=== PATIENT | male | born 1960 | race Caucasian/White ===

== ENCOUNTER 2017-12-31 16:33 | Inpatient (IN) | payer MEDICARE, OTHER ==
[~2017-12-31] VITALS: Ht 177.8 cm; Wt 70.2 kg
[~2017-12-31 16:33] MED LIST: CANE-100; CLON-527 PO; COR3.125T PO; FOLI-43 PO; LACT10SO PO; PRO30XLT PO; THI100T PO; THIAMINE
[2017-12-31] MEDS ORDERED: normal saline 1000ml 1,000 ML IV ONE (17:15)
[2017-12-31 17:29] LABS: BASOPHILS % (AUTO) 0.3 % (0-1); EOSINOPHILS # (AUTO) 0.3 X10'3 (0-0.9); EOSINOPHILS % (AUTO) 3.4 % (0-6); HEMATOCRIT 24.6 % (42.0-52.0); HEMOGLOBIN 8.2 g/dl (14.0-17.9); LYMPHOCYTES # (AUTO) 1.5 X10'3 (1.1-4.8); LYMPHOCYTES % (AUTO) 17.5 % (21-51); MEAN CORPUSCULAR HEMOGLOBIN 27.4 PG (27.0-31.0); MEAN CORPUSCULAR HGB CONC 33.2 % (33.0-36.5); MEAN CORPUSCULAR VOLUME 82.4 FL (78-98); MEAN PLATELET VOLUME 8.1 FL (7.4-10.4); MONOCYTES # (AUTO) 0.7 X10'3 (0-0.9); MONOCYTES % (AUTO) 8.1 % (2-12); NEUTROPHILS # (AUTO) 6.2 X10'3 (1.8-7.7); NEUTROPHILS % (AUTO) 70.7 % (42-75); PLATELET COUNT 128 X10'3 (140-440); RED BLOOD COUNT 2.99 X10'6 (4.70-6.10); RED CELL DISTRIBUTION WIDTH 18.9 % (11.5-14.5); WHITE BLOOD COUNT 8.7 X10'3 (4.5-11.0)
[2017-12-31 17:40] LABS: INR 1.4 INR; PARTIAL THROMBOPLASTIN TIME 25 SECONDS (22-32); PROTHROMBIN TIME 14.1 SECONDS (9.0-12.0)
[2017-12-31 17:44] LABS: ALANINE AMINOTRANSFERASE 143 U/L (12-78); ALBUMIN 2.4 G/DL (3.4-5.0); ALBUMIN/GLOBULIN RATIO 0.6 (1.1-1.5); ALKALINE PHOSPHATASE 111 IU/L (46-116); ANION GAP 6 (8-16); ASPARTATE AMINO TRANSFERASE 197 U/L (10-37); BILIRUBIN,TOTAL 0.9 MG/DL (0.1-1.0); BLOOD UREA NITROGEN 54 MG/DL (7-18); BUN/CREATININE RATIO 46.6 (5.4-32.0); CALCIUM 8.6 MG/DL (8.5-10.1); CHLORIDE 106 MMOL/L (99-107); CREATININE 1.16 MG/DL (0.60-1.10); ETHANOL < 0.010 GM/DL (0.0-0.010); GLUCOSE 124 MG/DL (70-104); POTASSIUM 4.5 MMOL/L (3.5-5.1); SODIUM 141 MMOL/L (135-145); TOTAL CARBON DIOXIDE 28.9 MMOL/L (24-32); TOTAL PROTEIN 6.4 G/DL (6.4-8.2); eGFR 65 ML/MIN
[2017-12-31] MEDS ORDERED: normal saline 1000ML IV soln IV ONE (18:40)
[2017-12-31 18:45] LABS: CLARITY,URINE CLEAR (Clear); COLOR,URINE YELLOW (Yellow); GLUCOSE, URINE NEGATIVE (Neg); KETONES,URINE NEGATIVE (Neg); LEUKOCYTE ESTERASE ,URINE NEGATIVE (Neg); NITRITES, URINE NEGATIVE (Neg); OCCULT BLOOD,URINE NEGATIVE (Neg); PROTEIN,URINE NEGATIVE (Neg); UA COLLECTION TYPE CLN CATCH MIDSTREAM
[2017-12-31 18:52] LABS: URINE AMPHETAMINE SCREEN POSITIVE (Neg); URINE BARBITUATE SCREEN NEGATIVE (Neg); URINE BENZODIAZEPINES SCREEN NEGATIVE (Neg); URINE CANNABINOID SCREEN NEGATIVE (Neg); URINE COCAINE SCREEN NEGATIVE (Neg); URINE METHADONE SCREEN NEGATIVE (Neg); URINE OPIATE SCREEN NEGATIVE (Neg); URINE PHENCYCLIDINE SCREEN NEGATIVE (Neg)
[2017-12-31] MEDS ORDERED: ketorolac tromethamine 15mg/ml inj. IV ONE (19:10)
[2017-12-31] MEDS ORDERED: ondansetron/PF 4mg/2ml inj IV ONE (19:10)
[2017-12-31 20:46] LABS: HEMOGLOBIN 7.1 g/dl (14.0-17.9); MEAN CORPUSCULAR HEMOGLOBIN 27.4 PG (27.0-31.0); MEAN CORPUSCULAR HGB CONC 33.3 % (33.0-36.5); MEAN CORPUSCULAR VOLUME 82.2 FL (78-98); MEAN PLATELET VOLUME 8.2 FL (7.4-10.4); PLATELET COUNT 95 X10'3 (140-440); RED BLOOD COUNT 2.61 X10'6 (4.70-6.10); RED CELL DISTRIBUTION WIDTH 19.2 % (11.5-14.5); WHITE BLOOD COUNT 7.3 X10'3 (4.5-11.0)
[2017-12-31 20:53] LABS: HEMATOCRIT 21.4 % (42.0-52.0)
[2017-12-31 22:00] LABS: LIPASE 129 U/L (73-393)
[2017-12-31 23:26] VITALS: BP 127/71
[2017-12-31] MEDS ORDERED: octreotide inj. 1,250 MCG in normal saline 250ml IV soln 243.75 ML IV SCH (23:40)
[2017-12-31 23:49] VITALS: BP 105/75
[2017-12-31 23:56] VITALS: BP 119/69
[2018-01-01] VITALS (28 sets, daily range): BP systolic 92–149; BP diastolic 47–80
[2018-01-01] MEDS: normal saline 1000ml 1,000 ML IV SCH ×2 (00:14→14:12)
[2018-01-01] MEDS ORDERED: magnesium hydroxide 30ml (MOM) UD suspension PO PRN (00:15)
[2018-01-01] MEDS ORDERED: K, MAG and/or Phos replacement - Verify level? MC PRN (00:15)
[2018-01-01] MEDS ORDERED: potassium Cl 40MEQ/NS 500ml 500 ML IV PRN (00:15)
[2018-01-01] MEDS ORDERED: acetaminophen 650mg rectal suppository RC PRN (00:15)
[2018-01-01] MEDS ORDERED: ondansetron/PF 4mg/2ml inj IV PRN (00:15)
[2018-01-01] MEDS ORDERED: ipratropium/albuterol 3ml nebule NEB PRN (00:35)
[2018-01-01] MEDS ORDERED: octreotide 200mcg/ml 5ml vial ONE ×2 (01:54→01:55)
[2018-01-01] MEDS ORDERED: normal saline 250ml IV soln 250 ML ONE (01:55)
[2018-01-01] MEDS ORDERED: pantoprazole 40 MG vial IV ONE (02:00)
[2018-01-01 02:09] LABS: HEMATOCRIT 25.2 % (42.0-52.0); HEMOGLOBIN 8.6 g/dl (14.0-17.9); MEAN CORPUSCULAR HEMOGLOBIN 28.1 PG (27.0-31.0); MEAN CORPUSCULAR VOLUME 82.6 FL (78-98); MEAN PLATELET VOLUME 8.5 FL (7.4-10.4); PLATELET COUNT 99 X10'3 (140-440); RED BLOOD COUNT 3.06 X10'6 (4.70-6.10); RED CELL DISTRIBUTION WIDTH 18.3 % (11.5-14.5); WHITE BLOOD COUNT 8.8 X10'3 (4.5-11.0)
[2018-01-01] MEDS: octreotide inj. 1,250 MCG in normal saline 250ml IV soln 243.75 ML IV SCH (02:41)
[2018-01-01] MEDS: pantoprazole 40MG/NS 100ML BAG 100 ML IV SCH ×5 (03:00→21:00)
[2018-01-01 07:01] LABS: BASOPHILS % (AUTO) 0.4 % (0-1); EOSINOPHILS # (AUTO) 0.4 X10'3 (0-0.9); HEMATOCRIT 26.6 % (42.0-52.0); LYMPHOCYTES # (AUTO) 1.4 X10'3 (1.1-4.8); LYMPHOCYTES % (AUTO) 14.6 % (21-51); MEAN CORPUSCULAR HEMOGLOBIN 28.1 PG (27.0-31.0); MEAN CORPUSCULAR HGB CONC 33.9 % (33.0-36.5); MEAN PLATELET VOLUME 8.6 FL (7.4-10.4); MONOCYTES # (AUTO) 0.7 X10'3 (0-0.9); MONOCYTES % (AUTO) 6.8 % (2-12); NEUTROPHILS # (AUTO) 7.3 X10'3 (1.8-7.7); NEUTROPHILS % (AUTO) 74.2 % (42-75); PLATELET COUNT 114 X10'3 (140-440); RED BLOOD COUNT 3.21 X10'6 (4.70-6.10); RED CELL DISTRIBUTION WIDTH 18.5 % (11.5-14.5); WHITE BLOOD COUNT 9.8 X10'3 (4.5-11.0)
[2018-01-01 07:12] LABS: HIV ANTIBODY 1&2 RAPID NON-REACTIVE (Neg)
[2018-01-01 07:13] LABS: INR 1.3 INR; PARTIAL THROMBOPLASTIN TIME 28 SECONDS (22-32)
[2018-01-01 07:27] LABS: ALANINE AMINOTRANSFERASE 231 U/L (12-78); ALBUMIN 2.3 G/DL (3.4-5.0); ALBUMIN/GLOBULIN RATIO 0.6 (1.1-1.5); ALKALINE PHOSPHATASE 101 IU/L (46-116); ANION GAP 10 (8-16); ASPARTATE AMINO TRANSFERASE 332 U/L (10-37); BILIRUBIN,TOTAL 1.8 MG/DL (0.1-1.0); BLOOD UREA NITROGEN 61 MG/DL (7-18); CHLORIDE 109 MMOL/L (99-107); CREATININE 1.09 MG/DL (0.60-1.10); GLUCOSE 118 MG/DL (70-104); MAGNESIUM 1.9 MG/DL (1.5-2.4); PHOSPHORUS 3.5 MG/DL (2.3-4.5); POTASSIUM 4.7 MMOL/L (3.5-5.1); SODIUM 143 MMOL/L (135-145); TOTAL CARBON DIOXIDE 24.2 MMOL/L (24-32); eGFR 70 ML/MIN
[2018-01-01] MEDS ORDERED: NO HOME MEDS (07:56)
[2018-01-01] MEDS ORDERED: fentaNYL/PF 50MCG/1 ML 2ML syringe ONE (09:00)
[2018-01-01] MEDS ORDERED: MIDAZolam 5mg/5ml vial ONE (09:01)
[2018-01-01] MEDS ORDERED: LIDOcaine Viscous 15ml cup ONE (09:01)
[2018-01-01 09:19] LABS: HEMATOCRIT 25.9 % (42.0-52.0); HEMOGLOBIN 8.6 g/dl (14.0-17.9); MEAN CORPUSCULAR HEMOGLOBIN 27.4 PG (27.0-31.0); MEAN CORPUSCULAR HGB CONC 33.2 % (33.0-36.5); MEAN CORPUSCULAR VOLUME 82.5 FL (78-98); MEAN PLATELET VOLUME 8.8 FL (7.4-10.4); PLATELET COUNT 112 X10'3 (140-440); RED BLOOD COUNT 3.14 X10'6 (4.70-6.10); RED CELL DISTRIBUTION WIDTH 18.5 % (11.5-14.5); WHITE BLOOD COUNT 9.6 X10'3 (4.5-11.0)
[2018-01-01 13:01] LABS: HEMATOCRIT 26.3 % (42.0-52.0); HEMOGLOBIN 8.8 g/dl (14.0-17.9); MEAN CORPUSCULAR HEMOGLOBIN 27.8 PG (27.0-31.0); MEAN CORPUSCULAR HGB CONC 33.2 % (33.0-36.5); MEAN CORPUSCULAR VOLUME 83.7 FL (78-98); MEAN PLATELET VOLUME 8.8 FL (7.4-10.4); PLATELET COUNT 96 X10'3 (140-440); RED BLOOD COUNT 3.15 X10'6 (4.70-6.10); RED CELL DISTRIBUTION WIDTH 18.7 % (11.5-14.5); WHITE BLOOD COUNT 8.5 X10'3 (4.5-11.0)
[2018-01-01 17:03] LABS: HEMATOCRIT 26.3 % (42.0-52.0); HEMOGLOBIN 8.8 g/dl (14.0-17.9); MEAN CORPUSCULAR HEMOGLOBIN 27.9 PG (27.0-31.0); MEAN CORPUSCULAR HGB CONC 33.4 % (33.0-36.5); MEAN CORPUSCULAR VOLUME 83.4 FL (78-98); MEAN PLATELET VOLUME 8.7 FL (7.4-10.4); PLATELET COUNT 102 X10'3 (140-440); RED BLOOD COUNT 3.15 X10'6 (4.70-6.10); RED CELL DISTRIBUTION WIDTH 18.4 % (11.5-14.5); WHITE BLOOD COUNT 9.4 X10'3 (4.5-11.0)
[2018-01-01] MEDS: LORazepam 2 mg/ml vial IV PRN (19:07)
[2018-01-01 21:11] LABS: HEMATOCRIT 25.4 % (42.0-52.0); HEMOGLOBIN 8.4 g/dl (14.0-17.9); MEAN CORPUSCULAR HEMOGLOBIN 27.7 PG (27.0-31.0); MEAN CORPUSCULAR HGB CONC 33.1 % (33.0-36.5); MEAN CORPUSCULAR VOLUME 83.8 FL (78-98); MEAN PLATELET VOLUME 8.6 FL (7.4-10.4); PLATELET COUNT 105 X10'3 (140-440); RED BLOOD COUNT 3.04 X10'6 (4.70-6.10); RED CELL DISTRIBUTION WIDTH 18.6 % (11.5-14.5); WHITE BLOOD COUNT 8.4 X10'3 (4.5-11.0)
[2018-01-02] VITALS (24 sets, daily range): BP systolic 119–188; BP diastolic 57–95
[2018-01-02] MEDS: pantoprazole 40MG/NS 100ML BAG 100 ML IV SCH ×5 (00:40→21:00)
[2018-01-02] MEDS: octreotide inj. 1,250 MCG in normal saline 250ml IV soln 243.75 ML IV SCH (02:59)
[2018-01-02] MEDS: normal saline 1000ml 1,000 ML IV SCH ×2 (03:00→17:07)
[2018-01-02 05:36] LABS: HEMATOCRIT 26.3 % (42.0-52.0); HEMOGLOBIN 8.6 g/dl (14.0-17.9); MEAN CORPUSCULAR HEMOGLOBIN 27.7 PG (27.0-31.0); MEAN CORPUSCULAR HGB CONC 32.5 % (33.0-36.5); MEAN CORPUSCULAR VOLUME 85.3 FL (78-98); MEAN PLATELET VOLUME 8.8 FL (7.4-10.4); PLATELET COUNT 107 X10'3 (140-440); RED BLOOD COUNT 3.08 X10'6 (4.70-6.10); RED CELL DISTRIBUTION WIDTH 18.5 % (11.5-14.5); WHITE BLOOD COUNT 10.2 X10'3 (4.5-11.0)
[2018-01-02 05:38] LABS: BASOPHILS % (AUTO) 0.2 % (0-1); EOSINOPHILS # (AUTO) 0.4 X10'3 (0-0.9); EOSINOPHILS % (AUTO) 3.8 % (0-6); HEMATOCRIT 25.9 % (42.0-52.0); HEMOGLOBIN 8.6 g/dl (14.0-17.9); LYMPHOCYTES # (AUTO) 1.1 X10'3 (1.1-4.8); LYMPHOCYTES % (AUTO) 10.3 % (21-51); MEAN CORPUSCULAR HEMOGLOBIN 27.9 PG (27.0-31.0); MEAN CORPUSCULAR HGB CONC 33.2 % (33.0-36.5); MEAN PLATELET VOLUME 8.5 FL (7.4-10.4); MONOCYTES # (AUTO) 0.5 X10'3 (0-0.9); MONOCYTES % (AUTO) 4.5 % (2-12); NEUTROPHILS # (AUTO) 8.5 X10'3 (1.8-7.7); NEUTROPHILS % (AUTO) 81.2 % (42-75); PLATELET COUNT 106 X10'3 (140-440); RED BLOOD COUNT 3.09 X10'6 (4.70-6.10); RED CELL DISTRIBUTION WIDTH 18.3 % (11.5-14.5); WHITE BLOOD COUNT 10.4 X10'3 (4.5-11.0)
[2018-01-02 05:47] LABS: INR 1.2 INR; PARTIAL THROMBOPLASTIN TIME 27 SECONDS (22-32); PROTHROMBIN TIME 12.8 SECONDS (9.0-12.0)
[2018-01-02 06:18] LABS: ALANINE AMINOTRANSFERASE 264 U/L (12-78); ALBUMIN 2.2 G/DL (3.4-5.0); ALBUMIN/GLOBULIN RATIO 0.6 (1.1-1.5); ALKALINE PHOSPHATASE 98 IU/L (46-116); ANION GAP 12 (8-16); ASPARTATE AMINO TRANSFERASE 275 U/L (10-37); BILIRUBIN,TOTAL 1.2 MG/DL (0.1-1.0); BLOOD UREA NITROGEN 42 MG/DL (7-18); BUN/CREATININE RATIO 38.5 (5.4-32.0); CALCIUM 7.9 MG/DL (8.5-10.1); CHLORIDE 114 MMOL/L (99-107); CREATININE 1.09 MG/DL (0.60-1.10); GLUCOSE 128 MG/DL (70-104); PHOSPHORUS 2.7 MG/DL (2.3-4.5); SODIUM 149 MMOL/L (135-145); TOTAL PROTEIN 5.9 G/DL (6.4-8.2); eGFR 70 ML/MIN
[2018-01-02] MEDS: chlordiazePOXIDE 25mg capsule PO PRN ×2 (10:42→21:32)
[2018-01-02 13:09] LABS: HBSAG SCREEN Negative (Negative); HEPATITIS C ANTIBODY >11.0 s/co ratio (0.0-0.9)
[2018-01-02] MEDS: LORazepam 2 mg/ml vial IV PRN (17:29)
[2018-01-02] MEDS: acetaminophen 325mg tablet PO PRN (21:33)
[2018-01-03] VITALS (24 sets, daily range): BP systolic 121–196; BP diastolic 68–94
[2018-01-03] MEDS: pantoprazole 40MG/NS 100ML BAG 100 ML IV SCH ×3 (01:00→10:29)
[2018-01-03] MEDS: octreotide inj. 1,250 MCG in normal saline 250ml IV soln 243.75 ML IV SCH (04:28)
[2018-01-03] MEDS: normal saline 1000ml 1,000 ML IV SCH (04:28)
[2018-01-03 05:55] LABS: BASOPHILS % (AUTO) 0.4 % (0-1); EOSINOPHILS # (AUTO) 0.4 X10'3 (0-0.9); EOSINOPHILS % (AUTO) 5.5 % (0-6); HEMATOCRIT 22.3 % (42.0-52.0); HEMOGLOBIN 7.5 g/dl (14.0-17.9); LYMPHOCYTES # (AUTO) 1.3 X10'3 (1.1-4.8); LYMPHOCYTES % (AUTO) 16.3 % (21-51); MEAN CORPUSCULAR HEMOGLOBIN 28.6 PG (27.0-31.0); MEAN CORPUSCULAR HGB CONC 33.7 % (33.0-36.5); MEAN CORPUSCULAR VOLUME 85.1 FL (78-98); MEAN PLATELET VOLUME 8.7 FL (7.4-10.4); MONOCYTES # (AUTO) 0.4 X10'3 (0-0.9); MONOCYTES % (AUTO) 5.5 % (2-12); NEUTROPHILS # (AUTO) 5.8 X10'3 (1.8-7.7); NEUTROPHILS % (AUTO) 72.3 % (42-75); PLATELET COUNT 83 X10'3 (140-440); RED BLOOD COUNT 2.62 X10'6 (4.70-6.10); WHITE BLOOD COUNT 8.1 X10'3 (4.5-11.0)
[2018-01-03 05:56] LABS: INR 1.2 INR; PROTHROMBIN TIME 12.6 SECONDS (9.0-12.0)
[2018-01-03 06:04] LABS: ALANINE AMINOTRANSFERASE 213 U/L (12-78); ALBUMIN 2.1 G/DL (3.4-5.0); ALBUMIN/GLOBULIN RATIO 0.6 (1.1-1.5); ALKALINE PHOSPHATASE 93 IU/L (46-116); ANION GAP 4 (8-16); ASPARTATE AMINO TRANSFERASE 147 U/L (10-37); BILIRUBIN,TOTAL 1.2 MG/DL (0.1-1.0); CALCIUM 8.1 MG/DL (8.5-10.1); CHLORIDE 113 MMOL/L (99-107); CREATININE 0.95 MG/DL (0.60-1.10); GLUCOSE 118 MG/DL (70-104); PHOSPHORUS 2.6 MG/DL (2.3-4.5); POTASSIUM 3.4 MMOL/L (3.5-5.1); SODIUM 141 MMOL/L (135-145); TOTAL CARBON DIOXIDE 24.1 MMOL/L (24-32); TOTAL PROTEIN 5.9 G/DL (6.4-8.2); eGFR 82 ML/MIN
[2018-01-03 06:05] LABS: BLOOD UREA NITROGEN 27 MG/DL (7-18); BUN/CREATININE RATIO 28.4 (5.4-32.0)
[2018-01-03] MEDS: potassium Cl 40MEQ/NS 500ml 500 ML IV PRN (09:51)
[2018-01-03] MEDS: LORazepam 2 mg/ml vial IV PRN ×4 (10:19→21:48)
[2018-01-03] MEDS: pantoprazole 40 MG vial IV SCH ×2 (11:55→21:55)
[2018-01-03] MEDS: lactulose 20gm/30ml cup PO SCH ×3 (12:00→20:00)
[2018-01-03] MEDS: thiamine inj. 100 MG, MVI, adult No.4 with vit. K 10 ML in dextrose 5% water 500ml 489 ML IV SCH ×3 (16:04)
[2018-01-03] MEDS ORDERED: acetaminophen 1,000mg/100ml IV 100 ML IV ONE (19:15)
[2018-01-04] VITALS (24 sets, daily range): BP systolic 109–179; BP diastolic 59–91
[2018-01-04] MEDS: lactulose 20gm/30ml cup PO SCH ×4 (01:59→20:00)
[2018-01-04] MEDS: normal saline 1000ml 1,000 ML IV SCH ×3 (02:21→21:34)
[2018-01-04 04:55] LABS: BASOPHILS % (AUTO) 0.3 % (0-1); EOSINOPHILS # (AUTO) 0.1 X10'3 (0-0.9); EOSINOPHILS % (AUTO) 1.3 % (0-6); HEMATOCRIT 24.4 % (42.0-52.0); HEMOGLOBIN 8.1 g/dl (14.0-17.9); LYMPHOCYTES # (AUTO) 0.6 X10'3 (1.1-4.8); LYMPHOCYTES % (AUTO) 7.3 % (21-51); MEAN CORPUSCULAR HEMOGLOBIN 28.4 PG (27.0-31.0); MEAN CORPUSCULAR HGB CONC 33.3 % (33.0-36.5); MEAN CORPUSCULAR VOLUME 85.4 FL (78-98); MEAN PLATELET VOLUME 8.2 FL (7.4-10.4); MONOCYTES # (AUTO) 0.4 X10'3 (0-0.9); MONOCYTES % (AUTO) 5.9 % (2-12); NEUTROPHILS # (AUTO) 6.5 X10'3 (1.8-7.7); NEUTROPHILS % (AUTO) 85.2 % (42-75); PLATELET COUNT 86 X10'3 (140-440); RED BLOOD COUNT 2.86 X10'6 (4.70-6.10); RED CELL DISTRIBUTION WIDTH 19.5 % (11.5-14.5); WHITE BLOOD COUNT 7.6 X10'3 (4.5-11.0)
[2018-01-04 05:01] LABS: INR 1.2 INR; PROTHROMBIN TIME 12.7 SECONDS (9.0-12.0)
[2018-01-04 05:08] LABS: ALANINE AMINOTRANSFERASE 162 U/L (12-78); ALBUMIN 2.2 G/DL (3.4-5.0); ALBUMIN/GLOBULIN RATIO 0.5 (1.1-1.5); ALKALINE PHOSPHATASE 95 IU/L (46-116); ANION GAP 8 (8-16); ASPARTATE AMINO TRANSFERASE 85 U/L (10-37); BILIRUBIN,TOTAL 1.8 MG/DL (0.1-1.0); BLOOD UREA NITROGEN 17 MG/DL (7-18); BUN/CREATININE RATIO 14.9 (5.4-32.0); CALCIUM 7.6 MG/DL (8.5-10.1); CHLORIDE 109 MMOL/L (99-107); CREATININE 1.14 MG/DL (0.60-1.10); GLUCOSE 119 MG/DL (70-104); MAGNESIUM 1.6 MG/DL (1.5-2.4); PHOSPHORUS 2.7 MG/DL (2.3-4.5); POTASSIUM 3.5 MMOL/L (3.5-5.1); SODIUM 142 MMOL/L (135-145); TOTAL CARBON DIOXIDE 24.8 MMOL/L (24-32); TOTAL PROTEIN 6.4 G/DL (6.4-8.2); eGFR 66 ML/MIN
[2018-01-04] MEDS: LORazepam 2 mg/ml vial IV PRN (06:36)
[2018-01-04] MEDS: pantoprazole 40 MG vial IV SCH ×2 (07:59→20:15)
[2018-01-04] MEDS: thiamine inj. 100 MG, MVI, adult No.4 with vit. K 10 ML in dextrose 5% water 500ml 489 ML IV SCH ×3 (07:59)
[2018-01-04] MEDS ORDERED: dextrose 50%-water 50ml dispensing syringe IV ONE (20:06)
[2018-01-04] MEDS ORDERED: glucagon, human recombinant 1mg kit SUBCUT PRN (20:10)
[2018-01-04] MEDS ORDERED: dextrose 50%-water 50ml dispensing syringe IV PRN ×2 (20:10)
[2018-01-04] MEDS ORDERED: dextrose ORAL solution 15 GM/59 ML bottle PO PRN (20:10)
[2018-01-05] VITALS (10 sets, daily range): BP systolic 103–189; BP diastolic 63–106
[2018-01-05] MEDS: lactulose 20gm/30ml cup PO SCH ×4 (02:00→19:49)
[2018-01-05 04:59] LABS: BASOPHILS % (AUTO) 0.4 % (0-1); EOSINOPHILS # (AUTO) 0.4 X10'3 (0-0.9); EOSINOPHILS % (AUTO) 7.6 % (0-6); HEMATOCRIT 22.4 % (42.0-52.0); HEMOGLOBIN 7.6 g/dl (14.0-17.9); LYMPHOCYTES # (AUTO) 0.9 X10'3 (1.1-4.8); LYMPHOCYTES % (AUTO) 18.3 % (21-51); MEAN CORPUSCULAR HEMOGLOBIN 28.4 PG (27.0-31.0); MEAN CORPUSCULAR HGB CONC 33.7 % (33.0-36.5); MEAN CORPUSCULAR VOLUME 84.2 FL (78-98); MEAN PLATELET VOLUME 8.8 FL (7.4-10.4); MONOCYTES # (AUTO) 0.5 X10'3 (0-0.9); MONOCYTES % (AUTO) 9.3 % (2-12); NEUTROPHILS # (AUTO) 3.2 X10'3 (1.8-7.7); NEUTROPHILS % (AUTO) 64.4 % (42-75); PLATELET COUNT 70 X10'3 (140-440); RED BLOOD COUNT 2.66 X10'6 (4.70-6.10); RED CELL DISTRIBUTION WIDTH 19.7 % (11.5-14.5)
[2018-01-05] MEDS: normal saline 1000ml 1,000 ML IV SCH (05:01)
[2018-01-05 05:07] LABS: INR 1.2 INR; PROTHROMBIN TIME 12.8 SECONDS (9.0-12.0)
[2018-01-05 05:42] LABS: ALANINE AMINOTRANSFERASE 119 U/L (12-78); ALBUMIN 1.9 G/DL (3.4-5.0); ALBUMIN/GLOBULIN RATIO 0.5 (1.1-1.5); ALKALINE PHOSPHATASE 83 IU/L (46-116); ANION GAP 10 (8-16); ASPARTATE AMINO TRANSFERASE 66 U/L (10-37); BILIRUBIN,TOTAL 1.4 MG/DL (0.1-1.0); BLOOD UREA NITROGEN 12 MG/DL (7-18); BUN/CREATININE RATIO 13.3 (5.4-32.0); CALCIUM 7.6 MG/DL (8.5-10.1); CHLORIDE 106 MMOL/L (99-107); GLUCOSE 110 MG/DL (70-104); MAGNESIUM 1.6 MG/DL (1.5-2.4); PHOSPHORUS 2.4 MG/DL (2.3-4.5); POTASSIUM 3.5 MMOL/L (3.5-5.1); SODIUM 138 MMOL/L (135-145); TOTAL CARBON DIOXIDE 22.3 MMOL/L (24-32); TOTAL PROTEIN 5.8 G/DL (6.4-8.2); eGFR 87 ML/MIN
[2018-01-05] MEDS: thiamine inj. 100 MG, MVI, adult No.4 with vit. K 10 ML in dextrose 5% water 500ml 489 ML IV SCH ×3 (08:34)
[2018-01-05] MEDS: pantoprazole 40 MG vial IV SCH ×2 (08:34→19:50)
[2018-01-05] MEDS: acetaminophen 325mg tablet PO PRN ×2 (15:13→19:50)
[2018-01-05] MEDS ORDERED: carVEDilol 3.125mg tablet PO ONE (16:05)
[2018-01-05] MEDS ORDERED: NIFEdipine XL 30mg tablet PO ONE (16:05)
[2018-01-05 16:27] LABS: CLARITY,URINE CLOUDY (Clear); COLOR,URINE YELLOW (Yellow); GLUCOSE, URINE NEGATIVE (Neg); KETONES,URINE NEGATIVE (Neg); LEUKOCYTE ESTERASE ,URINE SMALL (Neg); NITRITES, URINE POSITIVE (Neg); OCCULT BLOOD,URINE LARGE (Neg); PH,URINE 5.5 (4.8-8.0); PROTEIN,URINE 30 mg/dl (Neg)
[2018-01-05 17:04] LABS: UA COLLECTION TYPE NON-SPECIFIED
[2018-01-05 17:05] LABS: WBC,URINE 50-100 /HPF (0-4)
[2018-01-05 17:06] LABS: BACTERIA,URINE 3+ /HPF (Neg); MUCUS STRANDS MODERATE /LPF (Neg); SQUAMOUS EPITHELIAL CELL,UR FEW /LPF (FEW); WBC CLUMPS,URINE MANY /HPF (NEGATIVE)
[2018-01-05] MEDS: carVEDilol 3.125mg tablet PO SCH (19:50)
[2018-01-05] MEDS ORDERED: carVEDilol 3.125mg tablet PO SCH (20:00)
[2018-01-06] MEDS: normal saline 1000ml 1,000 ML IV SCH ×2 (00:03→12:43)
[2018-01-06 02:00] VITALS: BP 122/60
[2018-01-06] MEDS: lactulose 20gm/30ml cup PO SCH ×4 (02:02→20:09)
[2018-01-06 05:57] LABS: BASOPHILS % (AUTO) 0.2 % (0-1); EOSINOPHILS % (AUTO) 0 % (0-6); HEMATOCRIT 22.2 % (42.0-52.0); HEMOGLOBIN 7.5 g/dl (14.0-17.9); LYMPHOCYTES # (AUTO) 0.9 X10'3 (1.1-4.8); LYMPHOCYTES % (AUTO) 6.1 % (21-51); MEAN CORPUSCULAR HEMOGLOBIN 28.5 PG (27.0-31.0); MEAN CORPUSCULAR HGB CONC 33.9 % (33.0-36.5); MEAN CORPUSCULAR VOLUME 84.1 FL (78-98); MEAN PLATELET VOLUME 8.8 FL (7.4-10.4); MONOCYTES # (AUTO) 0.8 X10'3 (0-0.9); MONOCYTES % (AUTO) 5.2 % (2-12); NEUTROPHILS # (AUTO) 13.5 X10'3 (1.8-7.7); NEUTROPHILS % (AUTO) 88.5 % (42-75); PLATELET COUNT 83 X10'3 (140-440); RED BLOOD COUNT 2.64 X10'6 (4.70-6.10); RED CELL DISTRIBUTION WIDTH 20.4 % (11.5-14.5); WHITE BLOOD COUNT 15.2 X10'3 (4.5-11.0)
[2018-01-06 06:07] LABS: INR 1.4 INR; PROTHROMBIN TIME 14.1 SECONDS (9.0-12.0)
[2018-01-06 06:28] LABS: ALANINE AMINOTRANSFERASE 97 U/L (12-78); ALBUMIN 1.8 G/DL (3.4-5.0); ALBUMIN/GLOBULIN RATIO 0.5 (1.1-1.5); ALKALINE PHOSPHATASE 118 IU/L (46-116); ANION GAP 10 (8-16); ASPARTATE AMINO TRANSFERASE 60 U/L (10-37); BILIRUBIN,TOTAL 2.7 MG/DL (0.1-1.0); BLOOD UREA NITROGEN 13 MG/DL (7-18); BUN/CREATININE RATIO 11.5 (5.4-32.0); CALCIUM 7.5 MG/DL (8.5-10.1); CHLORIDE 102 MMOL/L (99-107); CREATININE 1.13 MG/DL (0.60-1.10); GLUCOSE 142 MG/DL (70-104); MAGNESIUM 1.4 MG/DL (1.5-2.4); POTASSIUM 3.2 MMOL/L (3.5-5.1); SODIUM 134 MMOL/L (135-145); TOTAL PROTEIN 5.7 G/DL (6.4-8.2); eGFR 67 ML/MIN
[2018-01-06] MEDS ORDERED: NIFEdipine XL 30mg tablet PO SCH (08:00)
[2018-01-06] MEDS: folic acid 1mg tablet PO SCH (08:30)
[2018-01-06] MEDS: carVEDilol 3.125mg tablet PO SCH ×2 (08:30→20:10)
[2018-01-06] MEDS: pantoprazole 40 MG vial IV SCH (08:31)
[2018-01-06] MEDS: NIFEdipine XL 30mg tablet PO SCH (08:31)
[2018-01-06] MEDS: thiamine 100mg tablet PO SCH (08:31)
[2018-01-06] MEDS ORDERED: potassium Cl 20 mEq SR tablet PO PRN (10:20)
[2018-01-06 11:00] VITALS: BP 119/50
[2018-01-06] MEDS: potassium Cl 20 mEq SR tablet PO PRN ×2 (11:02→19:13)
[2018-01-06] MEDS: acetaminophen 325mg tablet PO PRN ×2 (11:03→20:10)
[2018-01-06] MEDS: vancomycin/NS 1 GM ADD-VANTAGE 250 ML IV SCH (13:39)
[2018-01-06 15:00] VITALS: BP 97/54
[2018-01-06 15:45] LABS: HIV-1 RNA by PCR <20
[2018-01-06 19:00] VITALS: BP 118/68
[2018-01-06] MEDS: pantoprazole 40mg Tablet.DR PO SCH (20:10)
[2018-01-06] MEDS: LORazepam 2 mg/ml vial IV PRN (20:26)
[2018-01-06 23:00] VITALS: BP 104/56
[2018-01-07] MEDS: lactulose 20gm/30ml cup PO SCH ×4 (01:16→20:36)
[2018-01-07] MEDS: vancomycin/NS 1 GM ADD-VANTAGE 250 ML IV SCH ×2 (01:16→12:39)
[2018-01-07] MEDS: normal saline 1000ml 1,000 ML IV SCH ×2 (01:19→14:08)
[2018-01-07 03:00] VITALS: BP 108/64
[2018-01-07 06:00] VITALS: BP 113/64
[2018-01-07 06:54] LABS: BASOPHILS % (AUTO) 0.1 % (0-1); EOSINOPHILS # (AUTO) 0.2 X10'3 (0-0.9); EOSINOPHILS % (AUTO) 1.9 % (0-6); LYMPHOCYTES # (AUTO) 1.2 X10'3 (1.1-4.8); MEAN CORPUSCULAR HEMOGLOBIN 27.9 PG (27.0-31.0); MEAN CORPUSCULAR HGB CONC 33.5 % (33.0-36.5); MEAN CORPUSCULAR VOLUME 83.3 FL (78-98); MONOCYTES # (AUTO) 0.9 X10'3 (0-0.9); MONOCYTES % (AUTO) 7.9 % (2-12); NEUTROPHILS # (AUTO) 9.2 X10'3 (1.8-7.7); NEUTROPHILS % (AUTO) 80.1 % (42-75); PLATELET COUNT 86 X10'3 (140-440); RED BLOOD COUNT 2.48 X10'6 (4.70-6.10); WHITE BLOOD COUNT 11.5 X10'3 (4.5-11.0)
[2018-01-07 07:02] LABS: HEMATOCRIT 20.6 % (42.0-52.0); HEMOGLOBIN 6.9 g/dl (14.0-17.9)
[2018-01-07 07:07] LABS: INR 1.3 INR; PROTHROMBIN TIME 13.8 SECONDS (9.0-12.0)
[2018-01-07 07:17] LABS: ALANINE AMINOTRANSFERASE 79 U/L (12-78); ALBUMIN 1.6 G/DL (3.4-5.0); ALBUMIN/GLOBULIN RATIO 0.4 (1.1-1.5); ALKALINE PHOSPHATASE 102 IU/L (46-116); ANION GAP 8 (8-16); ASPARTATE AMINO TRANSFERASE 46 U/L (10-37); BILIRUBIN,TOTAL 2.2 MG/DL (0.1-1.0); BLOOD UREA NITROGEN 16 MG/DL (7-18); CALCIUM 7.1 MG/DL (8.5-10.1); CHLORIDE 104 MMOL/L (99-107); CREATININE 0.94 MG/DL (0.60-1.10); GLUCOSE 129 MG/DL (70-104); MAGNESIUM 1.6 MG/DL (1.5-2.4); PHOSPHORUS 2.2 MG/DL (2.3-4.5); POTASSIUM 3.2 MMOL/L (3.5-5.1); SODIUM 133 MMOL/L (135-145); TOTAL CARBON DIOXIDE 20.8 MMOL/L (24-32); TOTAL PROTEIN 5.4 G/DL (6.4-8.2); eGFR 83 ML/MIN
[2018-01-07] MEDS: folic acid 1mg tablet PO SCH (08:33)
[2018-01-07] MEDS: pantoprazole 40mg Tablet.DR PO SCH ×2 (08:33→20:36)
[2018-01-07] MEDS: thiamine 100mg tablet PO SCH (08:33)
[2018-01-07] MEDS: potassium Cl 20 mEq SR tablet PO PRN ×2 (08:33→17:18)
[2018-01-07] MEDS: carVEDilol 3.125mg tablet PO SCH ×2 (08:33→20:36)
[2018-01-07] MEDS: NIFEdipine XL 30mg tablet PO SCH (08:37)
[2018-01-07] MEDS: acetaminophen 325mg tablet PO PRN (08:37)
[2018-01-07] MEDS: LORazepam 2 mg/ml vial IV PRN ×2 (08:47→20:45)
[2018-01-07] MEDS ORDERED: levoFLOXACIN-Levaquin 500mg/D5 100 ML IV SCH (09:30)
[2018-01-07 11:00] VITALS: BP 98/58
[2018-01-07] MEDS: ampicillin/sulbac 3gm/NS 100ml 100 ML IV SCH ×2 (14:16→20:36)
[2018-01-07 15:00] VITALS: BP 99/54
[2018-01-07 19:00] VITALS: BP 106/65
[2018-01-07 20:17] LABS: HEMATOCRIT 22.2 % (42.0-52.0); HEMOGLOBIN 7.4 g/dl (14.0-17.9); MEAN CORPUSCULAR HEMOGLOBIN 27.7 PG (27.0-31.0); MEAN CORPUSCULAR HGB CONC 33.3 % (33.0-36.5); MEAN CORPUSCULAR VOLUME 83.2 FL (78-98); MEAN PLATELET VOLUME 8.9 FL (7.4-10.4); PLATELET COUNT 115 X10'3 (140-440); RED BLOOD COUNT 2.67 X10'6 (4.70-6.10); RED CELL DISTRIBUTION WIDTH 20.7 % (11.5-14.5)
[2018-01-07 21:39] LABS: OCCULT BLOOD STOOL POSITIVE (Neg)
[2018-01-07 23:00] VITALS: BP 103/58
[2018-01-08] VITALS (9 sets, daily range): BP systolic 113–142; BP diastolic 67–80
[2018-01-08] MEDS ORDERED: VANCOMYCIN LEVEL IV ONE (00:30)
[2018-01-08] MEDS: ampicillin/sulbac 3gm/NS 100ml 100 ML IV SCH ×4 (01:53→19:15)
[2018-01-08] MEDS: lactulose 20gm/30ml cup PO SCH ×4 (01:53→19:14)
[2018-01-08] MEDS: LORazepam 2 mg/ml vial IV PRN ×2 (01:53→21:01)
[2018-01-08] MEDS: normal saline 1000ml 1,000 ML IV SCH ×2 (05:34→19:16)
[2018-01-08 06:21] LABS: BASOPHILS % (AUTO) 0.2 % (0-1); EOSINOPHILS # (AUTO) 0.4 X10'3 (0-0.9); EOSINOPHILS % (AUTO) 3.5 % (0-6); HEMATOCRIT 24.4 % (42.0-52.0); HEMOGLOBIN 8.3 g/dl (14.0-17.9); LYMPHOCYTES # (AUTO) 1.4 X10'3 (1.1-4.8); LYMPHOCYTES % (AUTO) 13.2 % (21-51); MEAN CORPUSCULAR HGB CONC 33.9 % (33.0-36.5); MEAN CORPUSCULAR VOLUME 82.6 FL (78-98); MONOCYTES # (AUTO) 0.9 X10'3 (0-0.9); MONOCYTES % (AUTO) 8.6 % (2-12); NEUTROPHILS # (AUTO) 8.1 X10'3 (1.8-7.7); NEUTROPHILS % (AUTO) 74.5 % (42-75); PLATELET COUNT 136 X10'3 (140-440); RED BLOOD COUNT 2.96 X10'6 (4.70-6.10); RED CELL DISTRIBUTION WIDTH 20.2 % (11.5-14.5); WHITE BLOOD COUNT 10.9 X10'3 (4.5-11.0)
[2018-01-08 06:51] LABS: INR 1.2 INR
[2018-01-08 06:57] LABS: ANISOCYTOSIS 2+; HYPOCHROMASIA 1+; PLATELET ESTIMATE DECREASED
[2018-01-08 07:01] LABS: ACANTHOCYTES 2+; SCHISTOCYTES 1+
[2018-01-08 07:02] LABS: POLYCHROMASIA 2+
[2018-01-08 07:03] LABS: ALANINE AMINOTRANSFERASE 72 U/L (12-78); ALBUMIN 1.7 G/DL (3.4-5.0); ALBUMIN/GLOBULIN RATIO 0.4 (1.1-1.5); ALKALINE PHOSPHATASE 112 IU/L (46-116); ANION GAP 10 (8-16); ASPARTATE AMINO TRANSFERASE 44 U/L (10-37); BILIRUBIN,TOTAL 2.9 MG/DL (0.1-1.0); BLOOD UREA NITROGEN 13 MG/DL (7-18); BUN/CREATININE RATIO 15.9 (5.4-32.0); CALCIUM 7.5 MG/DL (8.5-10.1); CHLORIDE 101 MMOL/L (99-107); CREATININE 0.82 MG/DL (0.60-1.10); GLUCOSE 128 MG/DL (70-104); MAGNESIUM 1.5 MG/DL (1.5-2.4); PHOSPHORUS 2.2 MG/DL (2.3-4.5); POTASSIUM 3.2 MMOL/L (3.5-5.1); SODIUM 131 MMOL/L (135-145); TOTAL CARBON DIOXIDE 20.4 MMOL/L (24-32); eGFR > 90 ML/MIN
[2018-01-08] MEDS: thiamine 100mg tablet PO SCH (08:10)
[2018-01-08] MEDS: carVEDilol 3.125mg tablet PO SCH ×2 (08:10→19:15)
[2018-01-08] MEDS: pantoprazole 40mg Tablet.DR PO SCH ×2 (08:11→19:15)
[2018-01-08] MEDS: NIFEdipine XL 30mg tablet PO SCH (08:12)
[2018-01-08] MEDS: potassium Cl 20 mEq SR tablet PO PRN ×2 (08:12→20:33)
[2018-01-08] MEDS: fluconazole 100mg tablet PO SCH (08:13)
[2018-01-08] MEDS: folic acid 1mg tablet PO SCH (08:13)
[2018-01-08] MEDS ORDERED: LORazepam 2 mg/ml vial IV PRN (08:30)
[2018-01-08] MEDS ORDERED: ziprasidone IM 20mg inj **IM only IM ONE ×2 (11:25→21:40)
[2018-01-08] MEDS: nutritional supplement (Nutren 2.0) 250ml bottle PO SCH ×2 (13:00→18:00)
[2018-01-08] MEDS ORDERED: LORazepam 2 mg/ml vial IM ONE (14:55)
[2018-01-08] MEDS: potassium Cl 40MEQ/NS 500ml 500 ML IV PRN (18:01)
[2018-01-08] MEDS: rifaximin 550mg tablet PO SCH (19:15)
[2018-01-09] VITALS (11 sets, daily range): BP systolic 116–186; BP diastolic 57–79
[2018-01-09] MEDS: ampicillin/sulbac 3gm/NS 100ml 100 ML IV SCH ×4 (01:10→19:09)
[2018-01-09] MEDS: lactulose 20gm/30ml cup PO SCH ×4 (01:10→19:08)
[2018-01-09 05:31] LABS: BASOPHILS % (AUTO) 0.4 % (0-1); EOSINOPHILS # (AUTO) 0.5 X10'3 (0-0.9); EOSINOPHILS % (AUTO) 5.9 % (0-6); HEMOGLOBIN 7.3 g/dl (14.0-17.9); LYMPHOCYTES # (AUTO) 1.3 X10'3 (1.1-4.8); MEAN CORPUSCULAR HEMOGLOBIN 27.8 PG (27.0-31.0); MEAN CORPUSCULAR HGB CONC 33.5 % (33.0-36.5); MEAN CORPUSCULAR VOLUME 83.1 FL (78-98); MEAN PLATELET VOLUME 8.2 FL (7.4-10.4); MONOCYTES # (AUTO) 0.7 X10'3 (0-0.9); MONOCYTES % (AUTO) 8.6 % (2-12); NEUTROPHILS # (AUTO) 5.4 X10'3 (1.8-7.7); NEUTROPHILS % (AUTO) 69.1 % (42-75); PLATELET COUNT 136 X10'3 (140-440); RED BLOOD COUNT 2.63 X10'6 (4.70-6.10); RED CELL DISTRIBUTION WIDTH 20.5 % (11.5-14.5); WHITE BLOOD COUNT 7.9 X10'3 (4.5-11.0)
[2018-01-09 05:52] LABS: HEMATOCRIT 21.9 % (42.0-52.0)
[2018-01-09 05:55] LABS: ALANINE AMINOTRANSFERASE 60 U/L (12-78); ALBUMIN 1.7 G/DL (3.4-5.0); ALBUMIN/GLOBULIN RATIO 0.4 (1.1-1.5); ALKALINE PHOSPHATASE 115 IU/L (46-116); ANION GAP 11 (8-16); ASPARTATE AMINO TRANSFERASE 43 U/L (10-37); BILIRUBIN,TOTAL 2.8 MG/DL (0.1-1.0); BLOOD UREA NITROGEN 10 MG/DL (7-18); BUN/CREATININE RATIO 15.2 (5.4-32.0); CALCIUM 7.4 MG/DL (8.5-10.1); CHLORIDE 104 MMOL/L (99-107); CREATININE 0.66 MG/DL (0.60-1.10); GLUCOSE 108 MG/DL (70-104); MAGNESIUM 1.6 MG/DL (1.5-2.4); PHOSPHORUS 2.6 MG/DL (2.3-4.5); POTASSIUM 3.6 MMOL/L (3.5-5.1); SODIUM 136 MMOL/L (135-145); TOTAL CARBON DIOXIDE 21.4 MMOL/L (24-32); eGFR > 90 ML/MIN
[2018-01-09 05:57] LABS: INR 1.2 INR; PROTHROMBIN TIME 12.6 SECONDS (9.0-12.0)
[2018-01-09 06:19] LABS: ACANTHOCYTES 1+; ANISOCYTOSIS 2+; HYPOCHROMASIA 1+; PLATELET ESTIMATE DECREASED; POLYCHROMASIA 1+; SCHISTOCYTES 1+
[2018-01-09] MEDS: nutritional supplement (Nutren 2.0) 250ml bottle PO SCH ×3 (08:00→18:00)
[2018-01-09] MEDS: normal saline 1000ml 1,000 ML IV SCH ×2 (08:14→20:33)
[2018-01-09] MEDS: rifaximin 550mg tablet PO SCH ×2 (08:36→19:08)
[2018-01-09] MEDS: carVEDilol 3.125mg tablet PO SCH ×2 (08:36→19:08)
[2018-01-09] MEDS: thiamine 100mg tablet PO SCH (08:36)
[2018-01-09] MEDS: NIFEdipine XL 30mg tablet PO SCH (08:36)
[2018-01-09] MEDS: pantoprazole 40mg Tablet.DR PO SCH ×2 (08:36→19:09)
[2018-01-09] MEDS: folic acid 1mg tablet PO SCH (08:36)
[2018-01-09] MEDS: fluconazole 100mg tablet PO SCH (08:59)
[2018-01-09 09:50] LABS: LIPASE 92 U/L (73-393)
[2018-01-09] MEDS: LORazepam 2 mg/ml vial IV PRN ×3 (13:52→23:19)
[2018-01-09] MEDS ORDERED: furosemide 40mg/4ml inj IV ONE ×2 (13:55→21:50)
[2018-01-09] MEDS ORDERED: morphine 4 MG/ML inj SYRINge IV ONE (16:25)
[2018-01-09] MEDS ORDERED: diphenhydrAMINE 25mg capsule PO ONE (16:40)
[2018-01-09] MEDS ORDERED: acetaminophen 325mg tablet PO ONE (16:40)
[2018-01-09] MEDS: lactobacillus rhamnosus 10,000 MMU CELLS/CAPSULE PO SCH (19:09)
[2018-01-09 22:17] LABS: HEMATOCRIT 27.9 % (42.0-52.0); HEMOGLOBIN 9.3 g/dl (14.0-17.9); MEAN CORPUSCULAR HGB CONC 33.3 % (33.0-36.5); MEAN CORPUSCULAR VOLUME 83.9 FL (78-98); MEAN PLATELET VOLUME 8.1 FL (7.4-10.4); PLATELET COUNT 185 X10'3 (140-440); RED BLOOD COUNT 3.32 X10'6 (4.70-6.10); RED CELL DISTRIBUTION WIDTH 19.3 % (11.5-14.5); WHITE BLOOD COUNT 10.7 X10'3 (4.5-11.0)
[2018-01-10] MEDS: lactulose 20gm/30ml cup PO SCH ×4 (01:15→19:08)
[2018-01-10] MEDS: ampicillin/sulbac 3gm/NS 100ml 100 ML IV SCH ×3 (01:16→13:24)
[2018-01-10 03:00] VITALS: BP 126/79
[2018-01-10] MEDS: LORazepam 2 mg/ml vial IV PRN ×5 (03:22→20:56)
[2018-01-10 06:00] VITALS: BP_SYST 104; BP_SYST 125; BP_DIAS 69; BP_DIAS 73
[2018-01-10 06:02] LABS: BASOPHILS # (AUTO) 0.1 X10'3 (0-0.2); BASOPHILS % (AUTO) 0.9 % (0-1); EOSINOPHILS # (AUTO) 0.5 X10'3 (0-0.9); EOSINOPHILS % (AUTO) 5.7 % (0-6); HEMATOCRIT 24.4 % (42.0-52.0); HEMOGLOBIN 8.1 g/dl (14.0-17.9); LYMPHOCYTES # (AUTO) 1.6 X10'3 (1.1-4.8); LYMPHOCYTES % (AUTO) 18.4 % (21-51); MEAN CORPUSCULAR HEMOGLOBIN 27.9 PG (27.0-31.0); MEAN CORPUSCULAR HGB CONC 33.1 % (33.0-36.5); MEAN CORPUSCULAR VOLUME 84.3 FL (78-98); MEAN PLATELET VOLUME 8.2 FL (7.4-10.4); MONOCYTES # (AUTO) 0.6 X10'3 (0-0.9); NEUTROPHILS # (AUTO) 5.8 X10'3 (1.8-7.7); PLATELET COUNT 152 X10'3 (140-440); RED CELL DISTRIBUTION WIDTH 20.4 % (11.5-14.5); WHITE BLOOD COUNT 8.5 X10'3 (4.5-11.0)
[2018-01-10 06:14] LABS: INR 1.2 INR; PROTHROMBIN TIME 12.2 SECONDS (9.0-12.0)
[2018-01-10 06:19] LABS: ALANINE AMINOTRANSFERASE 58 U/L (12-78); ALBUMIN 1.7 G/DL (3.4-5.0); ALBUMIN/GLOBULIN RATIO 0.4 (1.1-1.5); ALKALINE PHOSPHATASE 134 IU/L (46-116); ANION GAP 11 (8-16); ASPARTATE AMINO TRANSFERASE 39 U/L (10-37); BILIRUBIN,TOTAL 2.3 MG/DL (0.1-1.0); BLOOD UREA NITROGEN 10 MG/DL (7-18); BUN/CREATININE RATIO 10.5 (5.4-32.0); CALCIUM 7.5 MG/DL (8.5-10.1); CHLORIDE 104 MMOL/L (99-107); CREATININE 0.95 MG/DL (0.60-1.10); GLUCOSE 145 MG/DL (70-104); MAGNESIUM 1.6 MG/DL (1.5-2.4); PHOSPHORUS 3.6 MG/DL (2.3-4.5); POTASSIUM 3.3 MMOL/L (3.5-5.1); SODIUM 136 MMOL/L (135-145); TOTAL CARBON DIOXIDE 21.5 MMOL/L (24-32); TOTAL PROTEIN 6.2 G/DL (6.4-8.2); eGFR 82 ML/MIN
[2018-01-10] MEDS: nutritional supplement (Nutren 2.0) 250ml bottle PO SCH ×3 (08:00→17:43)
[2018-01-10] MEDS: lactobacillus rhamnosus 10,000 MMU CELLS/CAPSULE PO SCH ×2 (08:46→19:09)
[2018-01-10] MEDS: carVEDilol 3.125mg tablet PO SCH ×2 (08:46→19:08)
[2018-01-10] MEDS: thiamine 100mg tablet PO SCH (08:47)
[2018-01-10] MEDS: fluconazole 100mg tablet PO SCH (08:47)
[2018-01-10] MEDS: folic acid 1mg tablet PO SCH (08:47)
[2018-01-10] MEDS: NIFEdipine XL 30mg tablet PO SCH (08:47)
[2018-01-10] MEDS: pantoprazole 40mg Tablet.DR PO SCH ×2 (08:47→19:09)
[2018-01-10] MEDS: rifaximin 550mg tablet PO SCH ×2 (08:47→19:08)
[2018-01-10] MEDS: normal saline 1000ml 1,000 ML IV SCH (10:54)
[2018-01-10 11:00] VITALS: BP 126/73
[2018-01-10] MEDS ORDERED: piperacillin/tazobactam inj. 3.375 GM in normal saline 100ml IV SCH (14:55)
[2018-01-10 15:00] VITALS: BP 158/92
[2018-01-10] MEDS: potassium Cl 40MEQ/NS 500ml 500 ML IV PRN (17:44)
[2018-01-10 19:00] VITALS: BP 143/83
[2018-01-10] MEDS: piperacillin/tazobactam inj. 3.375 GM in normal saline 100ml IV SCH (19:26)
[2018-01-10 23:00] VITALS: BP 148/83
[2018-01-10] MEDS ORDERED: ziprasidone IM 20mg inj **IM only IM ONE (23:15)
[2018-01-11] MEDS: normal saline 1000ml 1,000 ML IV SCH ×2 (00:19→13:02)
[2018-01-11] MEDS: lactulose 20gm/30ml cup PO SCH ×4 (01:07→20:56)
[2018-01-11] MEDS: piperacillin/tazobactam inj. 3.375 GM in normal saline 100ml IV SCH ×4 (01:07→20:52)
[2018-01-11] MEDS: LORazepam 2 mg/ml vial IV PRN ×4 (01:41→19:18)
[2018-01-11 03:00] VITALS: BP 139/89
[2018-01-11 06:00] VITALS: BP 122/92
[2018-01-11 06:12] LABS: BASOPHILS % (AUTO) 0.5 % (0-1); EOSINOPHILS # (AUTO) 0.4 X10'3 (0-0.9); EOSINOPHILS % (AUTO) 4.7 % (0-6); HEMATOCRIT 24.2 % (42.0-52.0); LYMPHOCYTES # (AUTO) 1.2 X10'3 (1.1-4.8); LYMPHOCYTES % (AUTO) 14.6 % (21-51); MEAN CORPUSCULAR HEMOGLOBIN 28.7 PG (27.0-31.0); MEAN CORPUSCULAR HGB CONC 33.2 % (33.0-36.5); MEAN CORPUSCULAR VOLUME 86.2 FL (78-98); MEAN PLATELET VOLUME 8.1 FL (7.4-10.4); MONOCYTES # (AUTO) 0.7 X10'3 (0-0.9); MONOCYTES % (AUTO) 7.9 % (2-12); NEUTROPHILS % (AUTO) 72.3 % (42-75); PLATELET COUNT 151 X10'3 (140-440); RED BLOOD COUNT 2.81 X10'6 (4.70-6.10); RED CELL DISTRIBUTION WIDTH 20.3 % (11.5-14.5); WHITE BLOOD COUNT 8.3 X10'3 (4.5-11.0)
[2018-01-11 06:32] LABS: ALANINE AMINOTRANSFERASE 49 U/L (12-78); ALBUMIN 1.8 G/DL (3.4-5.0); ALBUMIN/GLOBULIN RATIO 0.4 (1.1-1.5); ALKALINE PHOSPHATASE 149 IU/L (46-116); ANION GAP 9 (8-16); ASPARTATE AMINO TRANSFERASE 35 U/L (10-37); BILIRUBIN,TOTAL 1.8 MG/DL (0.1-1.0); BLOOD UREA NITROGEN 9 MG/DL (7-18); BUN/CREATININE RATIO 8.9 (5.4-32.0); CALCIUM 7.7 MG/DL (8.5-10.1); CHLORIDE 106 MMOL/L (99-107); CREATININE 1.01 MG/DL (0.60-1.10); GLUCOSE 123 MG/DL (70-104); MAGNESIUM 1.4 MG/DL (1.5-2.4); PHOSPHORUS 3.3 MG/DL (2.3-4.5); POTASSIUM 3.6 MMOL/L (3.5-5.1); SODIUM 137 MMOL/L (135-145); TOTAL CARBON DIOXIDE 22.5 MMOL/L (24-32); TOTAL PROTEIN 6.5 G/DL (6.4-8.2); eGFR 76 ML/MIN
[2018-01-11] MEDS: NIFEdipine XL 30mg tablet PO SCH (07:35)
[2018-01-11] MEDS: thiamine 100mg tablet PO SCH (07:36)
[2018-01-11] MEDS: folic acid 1mg tablet PO SCH (07:36)
[2018-01-11] MEDS: pantoprazole 40mg Tablet.DR PO SCH ×2 (07:36→20:54)
[2018-01-11] MEDS: nutritional supplement (Nutren 2.0) 250ml bottle PO SCH ×3 (07:36→18:00)
[2018-01-11] MEDS: rifaximin 550mg tablet PO SCH ×2 (07:36→21:03)
[2018-01-11] MEDS: lactobacillus rhamnosus 10,000 MMU CELLS/CAPSULE PO SCH ×2 (07:36→20:54)
[2018-01-11] MEDS: carVEDilol 3.125mg tablet PO SCH ×2 (07:36→20:54)
[2018-01-11 07:38] LABS: INR 1.2 INR; PROTHROMBIN TIME 12.4 SECONDS (9.0-12.0)
[2018-01-11 11:00] VITALS: BP 99/68
[2018-01-11] MEDS: ziprasidone IM 20mg inj **IM only IM PRN ×2 (12:49→20:55)
[2018-01-11 15:00] VITALS: BP 123/70
[2018-01-11 18:00] VITALS: BP 116/68
[2018-01-11 22:00] VITALS: BP 132/81
[2018-01-12] MEDS: LORazepam 2 mg/ml vial IV PRN (00:55)
[2018-01-12 02:00] VITALS: BP 161/85
[2018-01-12] MEDS: lactulose 20gm/30ml cup PO SCH ×4 (02:00→19:59)
[2018-01-12] MEDS: piperacillin/tazobactam inj. 3.375 GM in normal saline 100ml IV SCH ×4 (02:18→20:00)
[2018-01-12] MEDS: normal saline 1000ml 1,000 ML IV SCH ×2 (02:54→15:43)
[2018-01-12 05:30] VITALS: BP 159/101
[2018-01-12 06:04] LABS: BASOPHILS % (AUTO) 0.7 % (0-1); EOSINOPHILS # (AUTO) 0.3 X10'3 (0-0.9); EOSINOPHILS % (AUTO) 5.2 % (0-6); HEMATOCRIT 24.3 % (42.0-52.0); LYMPHOCYTES # (AUTO) 0.9 X10'3 (1.1-4.8); LYMPHOCYTES % (AUTO) 16.6 % (21-51); MEAN CORPUSCULAR HEMOGLOBIN 28.5 PG (27.0-31.0); MEAN CORPUSCULAR VOLUME 86.4 FL (78-98); MEAN PLATELET VOLUME 7.9 FL (7.4-10.4); MONOCYTES # (AUTO) 0.5 X10'3 (0-0.9); MONOCYTES % (AUTO) 9.5 % (2-12); NEUTROPHILS # (AUTO) 3.9 X10'3 (1.8-7.7); PLATELET COUNT 125 X10'3 (140-440); RED BLOOD COUNT 2.81 X10'6 (4.70-6.10); WHITE BLOOD COUNT 5.7 X10'3 (4.5-11.0)
[2018-01-12 06:12] LABS: INR 1.2 INR; PROTHROMBIN TIME 12.4 SECONDS (9.0-12.0)
[2018-01-12 06:29] LABS: ALANINE AMINOTRANSFERASE 50 U/L (12-78); ALBUMIN 1.8 G/DL (3.4-5.0); ALBUMIN/GLOBULIN RATIO 0.4 (1.1-1.5); ALKALINE PHOSPHATASE 129 IU/L (46-116); ANION GAP 7 (8-16); ASPARTATE AMINO TRANSFERASE 36 U/L (10-37); BILIRUBIN,TOTAL 1.5 MG/DL (0.1-1.0); BLOOD UREA NITROGEN 5 MG/DL (7-18); BUN/CREATININE RATIO 5.2 (5.4-32.0); CALCIUM 7.8 MG/DL (8.5-10.1); CHLORIDE 108 MMOL/L (99-107); CREATININE 0.97 MG/DL (0.60-1.10); GLUCOSE 86 MG/DL (70-104); MAGNESIUM 1.7 MG/DL (1.5-2.4); PHOSPHORUS 3.8 MG/DL (2.3-4.5); POTASSIUM 3.7 MMOL/L (3.5-5.1); SODIUM 140 MMOL/L (135-145); TOTAL CARBON DIOXIDE 24.6 MMOL/L (24-32); TOTAL PROTEIN 6.5 G/DL (6.4-8.2); eGFR 80 ML/MIN
[2018-01-12] MEDS: thiamine 100mg tablet PO SCH (08:28)
[2018-01-12] MEDS: rifaximin 550mg tablet PO SCH ×2 (08:28→20:00)
[2018-01-12] MEDS: carVEDilol 3.125mg tablet PO SCH (08:29)
[2018-01-12] MEDS: folic acid 1mg tablet PO SCH (08:29)
[2018-01-12] MEDS: NIFEdipine XL 30mg tablet PO SCH (08:29)
[2018-01-12] MEDS: pantoprazole 40mg Tablet.DR PO SCH ×2 (08:29→20:00)
[2018-01-12] MEDS: lactobacillus rhamnosus 10,000 MMU CELLS/CAPSULE PO SCH ×2 (08:29→20:00)
[2018-01-12] MEDS: nutritional supplement (Nutren 2.0) 250ml bottle PO SCH ×3 (08:34→18:00)
[2018-01-12 11:00] VITALS: BP 151/87
[2018-01-12 15:00] VITALS: BP 162/93
[2018-01-12 19:00] VITALS: BP 155/102
[2018-01-12] MEDS: ipratropium/albuterol 3ml nebule NEB SCH ×2 (19:00→23:00)
[2018-01-12] MEDS: propranolol 10mg tablet PO SCH (22:37)
[2018-01-12 23:00] VITALS: BP 160/100
[2018-01-13] MEDS: piperacillin/tazobactam inj. 3.375 GM in normal saline 100ml IV SCH ×4 (01:28→20:09)
[2018-01-13] MEDS: lactulose 20gm/30ml cup PO SCH ×4 (01:28→19:56)
[2018-01-13 03:00] VITALS: BP 152/89
[2018-01-13] MEDS: ipratropium/albuterol 3ml nebule NEB SCH ×9 (03:00→23:00)
[2018-01-13 04:53] LABS: BASOPHILS % (AUTO) 0.6 % (0-1); EOSINOPHILS # (AUTO) 0.4 X10'3 (0-0.9); EOSINOPHILS % (AUTO) 5.9 % (0-6); HEMATOCRIT 26.7 % (42.0-52.0); HEMOGLOBIN 8.7 g/dl (14.0-17.9); LYMPHOCYTES # (AUTO) 1.2 X10'3 (1.1-4.8); LYMPHOCYTES % (AUTO) 16.5 % (21-51); MEAN CORPUSCULAR HEMOGLOBIN 28.6 PG (27.0-31.0); MEAN CORPUSCULAR HGB CONC 32.7 % (33.0-36.5); MEAN CORPUSCULAR VOLUME 87.4 FL (78-98); MEAN PLATELET VOLUME 8.2 FL (7.4-10.4); MONOCYTES # (AUTO) 0.7 X10'3 (0-0.9); MONOCYTES % (AUTO) 9.7 % (2-12); NEUTROPHILS # (AUTO) 4.7 X10'3 (1.8-7.7); NEUTROPHILS % (AUTO) 67.3 % (42-75); PLATELET COUNT 151 X10'3 (140-440); RED BLOOD COUNT 3.05 X10'6 (4.70-6.10); RED CELL DISTRIBUTION WIDTH 24.6 % (11.5-14.5)
[2018-01-13 05:03] LABS: INR 1.2 INR; PROTHROMBIN TIME 12.4 SECONDS (9.0-12.0)
[2018-01-13 05:13] LABS: ALANINE AMINOTRANSFERASE 49 U/L (12-78); ALBUMIN 1.9 G/DL (3.4-5.0); ALBUMIN/GLOBULIN RATIO 0.4 (1.1-1.5); ALKALINE PHOSPHATASE 142 IU/L (46-116); ANION GAP 4 (8-16); ASPARTATE AMINO TRANSFERASE 45 U/L (10-37); BILIRUBIN,TOTAL 1.5 MG/DL (0.1-1.0); BLOOD UREA NITROGEN 6 MG/DL (7-18); BUN/CREATININE RATIO 6.1 (5.4-32.0); CALCIUM 7.8 MG/DL (8.5-10.1); CHLORIDE 108 MMOL/L (99-107); CREATININE 0.99 MG/DL (0.60-1.10); GLUCOSE 94 MG/DL (70-104); MAGNESIUM 2.1 MG/DL (1.5-2.4); PHOSPHORUS 3.8 MG/DL (2.3-4.5); SODIUM 137 MMOL/L (135-145); TOTAL CARBON DIOXIDE 25.4 MMOL/L (24-32); TOTAL PROTEIN 7.1 G/DL (6.4-8.2); eGFR 78 ML/MIN
[2018-01-13] MEDS: normal saline 1000ml 1,000 ML IV SCH (05:34)
[2018-01-13 06:00] VITALS: BP 143/85
[2018-01-13] MEDS: folic acid 1mg tablet PO SCH (07:46)
[2018-01-13] MEDS: propranolol 10mg tablet PO SCH ×3 (07:46→20:29)
[2018-01-13] MEDS: lactobacillus rhamnosus 10,000 MMU CELLS/CAPSULE PO SCH ×2 (07:46→19:56)
[2018-01-13] MEDS: NIFEdipine XL 30mg tablet PO SCH (07:47)
[2018-01-13] MEDS: thiamine 100mg tablet PO SCH (07:47)
[2018-01-13] MEDS: pantoprazole 40mg Tablet.DR PO SCH ×2 (07:47→19:56)
[2018-01-13] MEDS: rifaximin 550mg tablet PO SCH ×3 (08:00→19:56)
[2018-01-13] MEDS: nutritional supplement (Nutren 2.0) 250ml bottle PO SCH ×3 (08:52→18:02)
[2018-01-13] MEDS: LORazepam 2 mg/ml vial IV PRN ×3 (09:10→23:12)
[2018-01-13 11:00] VITALS: BP 120/75
[2018-01-13] MEDS ORDERED: methylPREDNISolone sod succ 125mg/2ml vial IV ONE (11:35)
[2018-01-13 15:00] VITALS: BP 123/78
[2018-01-13] MEDS: methylPREDNISolone sod succ 125mg/2ml vial IV SCH ×2 (15:09→19:57)
[2018-01-13 19:00] VITALS: BP 116/66
[2018-01-13 23:00] VITALS: BP 138/83
[2018-01-14] MEDS: lactulose 20gm/30ml cup PO SCH ×3 (02:00→14:00)
[2018-01-14] MEDS: piperacillin/tazobactam inj. 3.375 GM in normal saline 100ml IV SCH ×3 (02:00→14:00)
[2018-01-14 03:00] VITALS: BP 147/90
[2018-01-14] MEDS: ipratropium/albuterol 3ml nebule NEB SCH ×3 (03:00→11:00)
[2018-01-14] MEDS: methylPREDNISolone sod succ 125mg/2ml vial IV SCH ×3 (03:09→14:00)
[2018-01-14] MEDS: LORazepam 2 mg/ml vial IV PRN ×2 (03:12→09:38)
[2018-01-14 05:09] LABS: BASOPHILS % (AUTO) 0.2 % (0-1); EOSINOPHILS # (AUTO) 0.1 X10'3 (0-0.9); EOSINOPHILS % (AUTO) 1.4 % (0-6); HEMATOCRIT 26.9 % (42.0-52.0); HEMOGLOBIN 8.8 g/dl (14.0-17.9); LYMPHOCYTES # (AUTO) 0.5 X10'3 (1.1-4.8); LYMPHOCYTES % (AUTO) 6.9 % (21-51); MEAN CORPUSCULAR HEMOGLOBIN 28.6 PG (27.0-31.0); MEAN CORPUSCULAR HGB CONC 32.8 % (33.0-36.5); MEAN CORPUSCULAR VOLUME 87.2 FL (78-98); MONOCYTES # (AUTO) 0.2 X10'3 (0-0.9); MONOCYTES % (AUTO) 1.9 % (2-12); NEUTROPHILS # (AUTO) 7.1 X10'3 (1.8-7.7); NEUTROPHILS % (AUTO) 89.6 % (42-75); PLATELET COUNT 126 X10'3 (140-440); RED BLOOD COUNT 3.09 X10'6 (4.70-6.10); RED CELL DISTRIBUTION WIDTH 23.3 % (11.5-14.5); WHITE BLOOD COUNT 7.9 X10'3 (4.5-11.0)
[2018-01-14 05:40] LABS: INR 1.2 INR; PROTHROMBIN TIME 12.7 SECONDS (9.0-12.0)
[2018-01-14 05:47] LABS: ALANINE AMINOTRANSFERASE 50 U/L (12-78); ALBUMIN/GLOBULIN RATIO 0.4 (1.1-1.5); ALKALINE PHOSPHATASE 136 IU/L (46-116); ANION GAP 8 (8-16); ASPARTATE AMINO TRANSFERASE 36 U/L (10-37); BILIRUBIN,TOTAL 1.1 MG/DL (0.1-1.0); BLOOD UREA NITROGEN 13 MG/DL (7-18); BUN/CREATININE RATIO 11.4 (5.4-32.0); CALCIUM 8.3 MG/DL (8.5-10.1); CHLORIDE 104 MMOL/L (99-107); CREATININE 1.14 MG/DL (0.60-1.10); GLUCOSE 191 MG/DL (70-104); MAGNESIUM 1.9 MG/DL (1.5-2.4); PHOSPHORUS 2.8 MG/DL (2.3-4.5); POTASSIUM 4.1 MMOL/L (3.5-5.1); SODIUM 135 MMOL/L (135-145); TOTAL CARBON DIOXIDE 22.8 MMOL/L (24-32); TOTAL PROTEIN 7.3 G/DL (6.4-8.2); eGFR 66 ML/MIN
[2018-01-14 07:14] LABS: ANISOCYTOSIS 3+; PLATELET ESTIMATE DECREASED
[2018-01-14 07:15] LABS: POIKILOCYTOSIS FEW; POLYCHROMASIA FEW
[2018-01-14 07:16] VITALS: BP 156/106
[2018-01-14] MEDS: thiamine 100mg tablet PO SCH (08:35)
[2018-01-14] MEDS: pantoprazole 40mg Tablet.DR PO SCH (08:35)
[2018-01-14] MEDS: lactobacillus rhamnosus 10,000 MMU CELLS/CAPSULE PO SCH (08:35)
[2018-01-14] MEDS: folic acid 1mg tablet PO SCH (08:36)
[2018-01-14] MEDS: NIFEdipine XL 30mg tablet PO SCH (08:36)
[2018-01-14] MEDS: propranolol 10mg tablet PO SCH ×2 (08:37→13:00)
[2018-01-14] MEDS: rifaximin 550mg tablet PO SCH (08:37)
[2018-01-14 11:00] VITALS: BP 174/89
[2018-01-14 11:05] VITALS: BP 166/102
[2018-01-14] MEDS ORDERED: LIDOcaine 0.5% (5mg/ml) 50ml vial ONE (11:43)
[2018-01-14 11:58] VITALS: BP 140/82
[2018-01-14 13:43] LABS: ALBUMIN,BODY FLUID < 0.6 G/DL
[2018-01-14 14:09] LABS: LYMPHOCYTES,BODY FLUID 18 %; MONOCYTES,BODY FLUID 68 %; NEUTROPHILS,BODY FLUID 14 %
[2018-01-14 14:11] LABS: BF MESOTHELIAL CELLS MODERATE; BF RBC COUNT 44 /CU MM; BF WBC COUNT 146 /CU MM (0-1000); BFAPPEAR CLEAR; BFCOLOR YELLOW; BFVOLUME 60 ML
[2018-01-16] MEDS ORDERED: LACT10SO32 PO (09:10)
[2018-01-18 11:41] LABS: OCCULT BLOOD STOOL POSITIVE (Neg)
== END 2018-01-14 14:15 | disposition left against medical advice (07) | DRG 432 ==
LOC: ER 16:34 → ED HOLD 01-01 00:14 → CICU 2S 01-01 01:15 → PCU 3S 01-05 04:11
PROVIDERS: ATTEND Family Medicine
PROC: 30233N1 Transfusion of Nonautologous Red Blood Cells into Peripheral Vein, Percutaneous Approach (ICD-10-PCS; 2017-12-31)
PROC: 0DJ08ZZ Inspection of Upper Intestinal Tract, Via Natural or Artificial Opening Endoscopic (ICD-10-PCS; principal; 2018-01-01)
PROC: 06L38CZ Occlusion of Esophageal Vein with Extraluminal Device, Via Natural or Artificial Opening Endoscopic (ICD-10-PCS; 2018-01-01)
PROC: 30233N1 Transfusion of Nonautologous Red Blood Cells into Peripheral Vein, Percutaneous Approach (ICD-10-PCS; 2018-01-08)
PROC: 30233N1 Transfusion of Nonautologous Red Blood Cells into Peripheral Vein, Percutaneous Approach (ICD-10-PCS; 2018-01-09)
PROC: 0W9G3ZZ Drainage of Peritoneal Cavity, Percutaneous Approach (ICD-10-PCS; 2018-01-14)
DX: K70.31 Alcoholic cirrhosis of liver with ascites (principal); I85.01 Esophageal varices with bleeding; A41.01 Sepsis due to Methicillin susceptible Staphylococcus aureus; J18.9 Pneumonia, unspecified organism; E72.20 Disorder of urea cycle metabolism, unspecified; J44.0 Chronic obstructive pulmonary disease with (acute) lower respiratory infection; K76.6 Portal hypertension; K92.1 Melena; B19.20 Unspecified viral hepatitis C without hepatic coma; G89.29 Other chronic pain; K31.89 Other diseases of stomach and duodenum; B95.2 Enterococcus as the cause of diseases classified elsewhere; K72.90 Hepatic failure, unspecified without coma; B96.20 Unspecified Escherichia coli [E. coli] as the cause of diseases classified elsewhere; D64.9 Anemia, unspecified; M54.9 Dorsalgia, unspecified; I73.9 Peripheral vascular disease, unspecified; I10 Essential (primary) hypertension; F15.10 Other stimulant abuse, uncomplicated; F17.210 Nicotine dependence, cigarettes, uncomplicated; Z53.21 Procedure and treatment not carried out due to patient leaving prior to being seen by health care provider; Z59.0 Homelessness; Z88.1 Allergy status to other antibiotic agents; Z88.5 Allergy status to narcotic agent; Z78.1 Physical restraint status; Z91.19 Patient's noncompliance with other medical treatment and regimen
CPT/HCPCS: 36415; 43244; 49083; 71045; 74176; 76705; 80053; 80305; 80320; 81001; 81003; 82042; 82103; 82140; 82272; 82948; 83605; 83690; 83735; 84100; 84145; 85025; 85027; 85610; 85730; 86703; 86803; 86870; 86880; 86885; 86900; 86901; 86902; 86905; 86906; 86920; 86922; 87040; 87070; 87075; 87077; 87088; 87102; 87186; 87340; 87535; 89051; 93308; 94640; 94668; 94760; 96361; 96374; 96375; 99285; A4333; A4620; A4649; A6196; A6212; A6213; A6250; A6257; A6258; A6446; A6449; C1758; C9113; G0500; J0131; J0295; J1885; J1940; J1956; J2001; J2060; J2250; J2270; J2354; J2405; J2543; J2930; J3010; J3370; J3411; J3480; J3486; J7030; J7060; P9016; Q0163

== ENCOUNTER 2018-01-19 01:44 | Inpatient (IN) | payer MEDICARE, OTHER ==
[~2018-01-19] VITALS: Ht 180.3 cm; Wt 81.8 kg
[~2018-01-19 01:44] MED LIST changes: -CANE-100; -CLON-527 PO; -COR3.125T PO; -FOLI-43 PO; -LACT10SO PO; +LACT10SO32 PO; -PRO30XLT PO; -THI100T PO; -THIAMINE
[2018-01-19] MEDS ORDERED: levoFLOXACIN-Levaquin 750MG/D5 150 ML IV STA (04:20)
[2018-01-19] MEDS ORDERED: ketorolac trometh. 30mg/ml inj. IV ONE (04:45)
[2018-01-19 05:55] LABS: BASOPHILS % (AUTO) 0.2 % (0-1); EOSINOPHILS # (AUTO) 0.2 X10'3 (0-0.9); EOSINOPHILS % (AUTO) 4.9 % (0-6); HEMATOCRIT 23.6 % (42.0-52.0); HEMOGLOBIN 7.7 g/dl (14.0-17.9); LYMPHOCYTES # (AUTO) 0.9 X10'3 (1.1-4.8); LYMPHOCYTES % (AUTO) 17.3 % (21-51); MEAN CORPUSCULAR HEMOGLOBIN 28.3 PG (27.0-31.0); MEAN CORPUSCULAR HGB CONC 32.5 % (33.0-36.5); MEAN CORPUSCULAR VOLUME 87.1 FL (78-98); MEAN PLATELET VOLUME 8.1 FL (7.4-10.4); MONOCYTES # (AUTO) 0.5 X10'3 (0-0.9); MONOCYTES % (AUTO) 9.5 % (2-12); NEUTROPHILS # (AUTO) 3.4 X10'3 (1.8-7.7); NEUTROPHILS % (AUTO) 68.1 % (42-75); PLATELET COUNT 95 X10'3 (140-440); RED BLOOD COUNT 2.71 X10'6 (4.70-6.10); WHITE BLOOD COUNT 5.1 X10'3 (4.5-11.0)
[2018-01-19 05:59] LABS: ALANINE AMINOTRANSFERASE 80 U/L (12-78); ALBUMIN 2.1 G/DL (3.4-5.0); ALBUMIN/GLOBULIN RATIO 0.5 (1.1-1.5); ALKALINE PHOSPHATASE 197 IU/L (46-116); ANION GAP 8 (8-16); ASPARTATE AMINO TRANSFERASE 61 U/L (10-37); BILIRUBIN,TOTAL 0.9 MG/DL (0.1-1.0); BLOOD UREA NITROGEN 12 MG/DL (7-18); BUN/CREATININE RATIO 12.8 (5.4-32.0); CALCIUM 7.6 MG/DL (8.5-10.1); CHLORIDE 108 MMOL/L (99-107); CREATININE 0.94 MG/DL (0.60-1.10); GLUCOSE 118 MG/DL (70-104); POTASSIUM 3.6 MMOL/L (3.5-5.1); SODIUM 142 MMOL/L (135-145); TOTAL CARBON DIOXIDE 26.5 MMOL/L (24-32); TOTAL PROTEIN 6.5 G/DL (6.4-8.2); eGFR 83 ML/MIN
[2018-01-19] MEDS ORDERED: morphine 4 MG/ML inj SYRINge IV ONE (06:05)
[2018-01-19 06:07] LABS: TROPONIN I < 0.04 NG/ML (0.0-0.05)
[2018-01-19 06:34] LABS: ANISOCYTOSIS 3+; PLATELET ESTIMATE DECREASED
[2018-01-19] MEDS ORDERED: mag hydrox/Alum hydrox/simeth 30ml oral suspension PO PRN (07:40)
[2018-01-19] MEDS ORDERED: ondansetron/PF 4mg/2ml inj IV PRN (07:40)
[2018-01-19] MEDS ORDERED: ipratropium/albuterol 3ml nebule NEB PRN (07:40)
[2018-01-19] MEDS ORDERED: magnesium hydroxide 30ml (MOM) UD suspension PO PRN (07:40)
[2018-01-19] MEDS ORDERED: magnesium 4gm in 100ml NS 100 ML IV PRN (07:40)
[2018-01-19] MEDS ORDERED: acetaminophen 325mg tablet PO PRN (07:40)
[2018-01-19] MEDS ORDERED: potassium Cl 40MEQ/NS 500ml 500 ML IV PRN ×2 (07:40)
[2018-01-19] MEDS ORDERED: potassium Cl 20 mEq SR tablet PO PRN ×2 (07:40)
[2018-01-19] MEDS ORDERED: magnesium 1gm/100ml D5W IVPB 50 ML IV PRN (07:40)
[2018-01-19] MEDS: K and/or MAG REPLACEMENT MC SCH ×3 (07:58→10:41)
[2018-01-19 10:36] VITALS: BP 155/75
[2018-01-19] MEDS ORDERED: haloperidol 5mg tablet PO PRN (10:40)
[2018-01-19] MEDS ORDERED: haloperidol lactate 5mg/ml inj IM PRN (10:40)
[2018-01-19] MEDS: nicotine 14mg patch - 24hr TD SCH ×2 (10:40→11:44)
[2018-01-19] MEDS ORDERED: thiamine inj. 100 MG in normal saline 100ml IV soln 100 ML IV ONE (10:40)
[2018-01-19] MEDS: lactulose 20gm/30ml cup PO SCH ×3 (11:43→23:55)
[2018-01-19] MEDS: HYDROcodone/acetaminophen 10/325mg tab PO PRN ×2 (11:45→19:29)
[2018-01-19 20:00] VITALS: BP 155/79
[2018-01-19] MEDS: LORazepam 2 mg/ml vial IV PRN (20:08)
[2018-01-20] VITALS: BP 133/81
[2018-01-20 06:59] LABS: BASOPHILS # (AUTO) 0.1 X10'3 (0-0.2); EOSINOPHILS # (AUTO) 0.3 X10'3 (0-0.9); EOSINOPHILS % (AUTO) 6.5 % (0-6); HEMATOCRIT 23.8 % (42.0-52.0); HEMOGLOBIN 7.8 g/dl (14.0-17.9); LYMPHOCYTES # (AUTO) 0.6 X10'3 (1.1-4.8); LYMPHOCYTES % (AUTO) 14.2 % (21-51); MEAN CORPUSCULAR HEMOGLOBIN 28.4 PG (27.0-31.0); MEAN CORPUSCULAR HGB CONC 32.9 % (33.0-36.5); MEAN CORPUSCULAR VOLUME 86.1 FL (78-98); MEAN PLATELET VOLUME 8.1 FL (7.4-10.4); MONOCYTES # (AUTO) 0.4 X10'3 (0-0.9); MONOCYTES % (AUTO) 10.1 % (2-12); NEUTROPHILS # (AUTO) 2.8 X10'3 (1.8-7.7); NEUTROPHILS % (AUTO) 67.2 % (42-75); PLATELET COUNT 99 X10'3 (140-440); RED BLOOD COUNT 2.76 X10'6 (4.70-6.10); RED CELL DISTRIBUTION WIDTH 21.2 % (11.5-14.5); WHITE BLOOD COUNT 4.1 X10'3 (4.5-11.0)
[2018-01-20 07:15] LABS: ALANINE AMINOTRANSFERASE 75 U/L (12-78); ALBUMIN 1.8 G/DL (3.4-5.0); ALBUMIN/GLOBULIN RATIO 0.4 (1.1-1.5); ALKALINE PHOSPHATASE 178 IU/L (46-116); AMYLASE 47 U/L (25-115); ANION GAP 4 (8-16); ASPARTATE AMINO TRANSFERASE 58 U/L (10-37); BILIRUBIN,TOTAL 0.9 MG/DL (0.1-1.0); BLOOD UREA NITROGEN 13 MG/DL (7-18); BUN/CREATININE RATIO 16.5 (5.4-32.0); CALCIUM 7.5 MG/DL (8.5-10.1); CHLORIDE 108 MMOL/L (99-107); CHOL/HDL RATIO 1.4 (0.00-4.99); CHOLESTEROL 66 MG/DL (0-200); CREATININE 0.79 MG/DL (0.60-1.10); GLUCOSE 96 MG/DL (70-104); HDL CHOLESTEROL 47 MG/DL (35-60); LDL CHOLESTEROL 20 MG/DL (50-100); LIPASE 131 U/L (73-393); MAGNESIUM 1.8 MG/DL (1.5-2.4); POTASSIUM 4.2 MMOL/L (3.5-5.1); SODIUM 139 MMOL/L (135-145); TOTAL CARBON DIOXIDE 26.8 MMOL/L (24-32); TRIGLYCERIDES < 15 MG/DL (20-135); eGFR > 90 ML/MIN
[2018-01-20 07:23] VITALS: BP 152/88
[2018-01-20 07:41] LABS: PLATELET ESTIMATE DECREASED
[2018-01-20 07:42] LABS: ANISOCYTOSIS 3+; MICROCYTOSIS 1+
[2018-01-20] MEDS: nicotine 14mg patch - 24hr TD SCH (08:00)
[2018-01-20] MEDS ORDERED: folic acid inj. 2 MG, thiamine inj. 100 MG, MVI, adult No.4 with vit. K 10 ML in dextro... IV SCH ×4 (08:00)
[2018-01-20] MEDS: lactulose 20gm/30ml cup PO SCH ×3 (08:18→23:19)
[2018-01-20 11:25] VITALS: BP 147/85
[2018-01-20] MEDS ORDERED: furosemide 10 MG/1 ML 10ml inj IV ONE (11:50)
[2018-01-20] MEDS ORDERED: spironolactone 25 MG tablet PO ONE (12:15)
[2018-01-20] MEDS: HYDROcodone/acetaminophen 10/325mg tab PO PRN ×2 (12:25→19:23)
[2018-01-20 18:00] VITALS: BP 145/87
[2018-01-20] MEDS: LORazepam 2 mg/ml vial IV PRN (21:01)
[2018-01-21] VITALS: BP 151/85
[2018-01-21 05:48] LABS: ALANINE AMINOTRANSFERASE 73 U/L (12-78); ALBUMIN 1.8 G/DL (3.4-5.0); ALBUMIN/GLOBULIN RATIO 0.4 (1.1-1.5); ALKALINE PHOSPHATASE 202 IU/L (46-116); AMYLASE 57 U/L (25-115); ANION GAP 3 (8-16); ASPARTATE AMINO TRANSFERASE 58 U/L (10-37); BILIRUBIN,TOTAL 0.7 MG/DL (0.1-1.0); BLOOD UREA NITROGEN 12 MG/DL (7-18); BUN/CREATININE RATIO 12.8 (5.4-32.0); CALCIUM 7.7 MG/DL (8.5-10.1); CHLORIDE 105 MMOL/L (99-107); CREATININE 0.94 MG/DL (0.60-1.10); GLUCOSE 136 MG/DL (70-104); LIPASE 167 U/L (73-393); MAGNESIUM 1.6 MG/DL (1.5-2.4); POTASSIUM 4.1 MMOL/L (3.5-5.1); SODIUM 137 MMOL/L (135-145); TOTAL CARBON DIOXIDE 29.4 MMOL/L (24-32); TOTAL PROTEIN 5.9 G/DL (6.4-8.2); eGFR 83 ML/MIN
[2018-01-21 06:49] LABS: BASOPHILS % (AUTO) 2.4 % (0-1); EOSINOPHILS % (AUTO) 7.7 % (0-6); HEMOGLOBIN 7.4 g/dl (14.0-17.9); LYMPHOCYTES # (AUTO) 0.7 X10'3 (1.1-4.8); MEAN CORPUSCULAR HEMOGLOBIN 27.8 PG (27.0-31.0); MEAN CORPUSCULAR HGB CONC 32.1 % (33.0-36.5); MEAN CORPUSCULAR VOLUME 86.8 FL (78-98); MEAN PLATELET VOLUME 8.3 FL (7.4-10.4); NEUTROPHILS % (AUTO) 55.9 % (42-75); PLATELET COUNT 101 X10'3 (140-440); RED BLOOD COUNT 2.65 X10'6 (4.70-6.10); RED CELL DISTRIBUTION WIDTH 21.9 % (11.5-14.5); WHITE BLOOD COUNT 3.6 X10'3 (4.5-11.0)
[2018-01-21 06:50] LABS: BASOPHILS # (AUTO) 0.1 X10'3 (0-0.2); EOSINOPHILS # (AUTO) 0.3 X10'3 (0-0.9); MONOCYTES # (AUTO) 0.5 X10'3 (0-0.9)
[2018-01-21 07:07] VITALS: BP 146/76
[2018-01-21] MEDS ORDERED: diphenhydrAMINE 50 mg/ml inj IV ONE (07:35)
[2018-01-21] MEDS ORDERED: furosemide 10 MG/1 ML 10ml inj IV SCH (08:00)
[2018-01-21] MEDS ORDERED: folic acid 1mg tablet PO SCH (08:00)
[2018-01-21] MEDS: nicotine 14mg patch - 24hr TD SCH (08:00)
[2018-01-21] MEDS ORDERED: multivitamins, therapeutics tablet PO SCH (08:00)
[2018-01-21] MEDS ORDERED: thiamine 100mg tablet PO SCH (08:00)
[2018-01-21] MEDS ORDERED: spironolactone 25 MG tablet PO SCH ×2 (08:30)
[2018-01-21] MEDS ORDERED: furosemide 40mg/4ml inj IV ONE (09:35)
[2018-01-21] MEDS: lactulose 20gm/30ml cup PO SCH (10:10)
[2018-01-21 10:28] LABS: ANISOCYTOSIS 3+; MICROCYTOSIS 1+; PLATELET ESTIMATE DECREASED
[2018-01-21 10:29] LABS: POLYCHROMASIA FEW; SCHISTOCYTES FEW
[2018-01-21] MEDS ORDERED: LORazepam 1 MG tablet PO PRN (10:40)
[2018-01-21] MEDS ORDERED: LORazepam 2 mg/ml vial IV PRN (10:40)
[2018-01-21] MEDS: HYDROcodone/acetaminophen 10/325mg tab PO PRN (11:04)
[2018-01-21] MEDS ORDERED: FURO-150 PO (11:24)
[2018-01-21] MEDS ORDERED: HYDR-3972 PO (11:24)
[2018-01-21] MEDS ORDERED: LACT10SO32 PO (11:24)
[2018-01-21] MEDS ORDERED: SPIR25TA5 PO (11:24)
[2018-01-21] MEDS ORDERED: POTA-82 PO (11:24)
[2018-01-21 12:34] VITALS: BP 155/89
[2018-01-23] MEDS ORDERED: LORazepam 1 MG tablet PO PRN (10:40)
[2018-01-23] MEDS ORDERED: LORazepam 2 mg/ml vial IV PRN (10:40)
== END 2018-01-21 16:32 | disposition home or self-care (01) | DRG 441 ==
LOC: ER 01:45 → ED HOLD 07:36 → EDBEDREQ 08:48 → SUR 3N 10:13
PROVIDERS: ADMIT Family Medicine; ATTEND Family Medicine
DX: K72.90 Hepatic failure, unspecified without coma (principal); E43 Unspecified severe protein-calorie malnutrition; R18.8 Other ascites; I85.00 Esophageal varices without bleeding; I10 Essential (primary) hypertension; I73.9 Peripheral vascular disease, unspecified; J44.9 Chronic obstructive pulmonary disease, unspecified; K74.60 Unspecified cirrhosis of liver; B19.20 Unspecified viral hepatitis C without hepatic coma; F17.210 Nicotine dependence, cigarettes, uncomplicated; F15.19 Other stimulant abuse with unspecified stimulant-induced disorder; D64.9 Anemia, unspecified; F10.10 Alcohol abuse, uncomplicated; M54.9 Dorsalgia, unspecified; G89.29 Other chronic pain; Z56.0 Unemployment, unspecified; Z79.899 Other long term (current) drug therapy; Z59.0 Homelessness; Z88.6 Allergy status to analgesic agent; Z88.1 Allergy status to other antibiotic agents; Z80.9 Family history of malignant neoplasm, unspecified; Z68.25 Body mass index [BMI] 25.0-25.9, adult
CPT/HCPCS: 36415; 76705; 80053; 80061; 82140; 82150; 83605; 83690; 83735; 83880; 84484; 85025; 86870; 86885; 86900; 86901; 86902; 86905; 86922; 87040; 87070; 93005; 93925; 93970; 94667; 94668; 94760; 96365; 96366; 96375; 99285; J1885; J1940; J1956; J2060; J2270; J3411; J3490; J7030; J7060